=== PATIENT | male | born 1960 | race Caucasian/White ===

== ENCOUNTER 2019-06-10 10:54 | Observation (INO) ==
--- NOTE | 2019-05-28 14:16 | PAT Medication Instructions ---
Medication Instructions Date of Service May 28, 2019 Home Medications Medications atorvastatin 20 mg PO HS ibuprofen-diphenhydramine HCl [Ibuprofen PM] 1 cap PO HS verapamil 360 mg PO HS ASK your surgeon for instructions ibuprofen-diphenhydramine HCl [Ibuprofen PM] 1 cap PO HS Take evening before surgery atorvastatin 20 mg PO HS verapamil 360 mg PO HS Other Notes If you have any questions please call us at [phone] or [phone] or [phone] or [phone]
--- NOTE | 2019-05-29 10:36 | Anesthesiology Consultation ---
Date of Service May 29, 2019 Assessment & Plan (1) Encounter for pre-operative examination: Chart Review Chart Review: Acceptable Risk for Surgery and Patient seen in Pre Admission Testing Teaching & Discussion Instructed NPO after midnight before surgery, except medications with 15 cc of water. Medication instructions provided according to the PAT guidelines. History Surgery Operation Date: 06/10/19 13:15 Proposed Procedures p Left Total Knee Arthroplasty - Roman Yu MD Height/Weight Height: 5 ft 8 in Weight: 93.2 kg Allergies Allergy/AdvReac Type Severity Reaction Status Date / Time acetaminophen [From Percocet] AdvReac Unknown "GO INTO A Verified 05/21/19 10:18 DIFFERENT WORLD" oxycodone [From Percocet] AdvReac Unknown "GO INTO A Verified 05/21/19 10:18 DIFFERENT WORLD" Medications Home Medications Medication Instructions Recorded Confirmed Last Taken atorvastatin 20 mg PO HS 05/21/19 05/29/19 Unknown ibuprofen-diphenhydramine HCl 1 cap PO HS 05/21/19 05/29/19 Unknown [Ibuprofen PM] verapamil 360 mg PO HS 05/21/19 05/29/19 Unknown Past Medical History Medical History Hip bursitis, left History of basal cell carcinoma REMOVED Hyperlipidemia CONTROLLED WITH MED Hypertension CONTROLLED WITH MED Left knee DJD Osteoarthritis Sciatica Exercise / Class Metabolic Activity 1 > 8 Run/Swim/Ski/Tennis (Very active, ran marathons prior to worsening knee pain) Past Family History Family History Mother Family history of diabetes mellitus Past Surgical History Surgical History History of colonoscopy History of left knee surgery History of right knee surgery Past Anesthesia History No Hx of Anesthesia Complications and No Family Hx of Anesthesia Complications History of PONV No Hx of PONV and No Hx of Motion Sickness Social History Smoking Status: Never smoker Do You Dip or Chew Tobacco: No Hx Alcohol Use: Yes Alcohol type: beer Alcohol Intake Frequency Comment: AT MOST ONCE A MONTH Hx Substance Use: No substance use type: does not use Review of Systems Pt denies any recent chest pain, shortness of breath, palpitations, cough, fever or URI. Physical Exam Vital Signs BP: 141/81 P: 62bpm SPO2: 96% RA T: 97.6 F R: 12 ENMT Mouth: + dental restorations (few crowns and caps); no chipped teeth and no loose teeth Thyromental Distance: > or= 3.5 Finger Breadths (4) Mallampati Class: I Neck normal visual inspection and + facial hair (goatee, very short); neck extension not limited Respiratory normal respiratory effort Auscultation: lungs clear to auscultation bilaterally Cardiovascular Rate/Rhythm: regular rhythm and + bradycardic Heart Sounds: no murmur Vessels: no carotid bruit Extremities: no edema Testing Laboratory Results 05/29/19 10:17 05/29/19 10:17 PT 10.6 Seconds (9.0-12.0) 05/29/19 10:17 INR 1.0 (0.9-1.1) 05/29/19 10:17 APTT 26.5 Seconds (21.0-31.0) 05/29/19 10:17 Blood Type O Positive 05/29/19 10:17 Antibody Screen NEGATIVE 05/29/19 10:17 Electrocardiogram Date: 05/29/19 Findings: + SB @ (58) Chest X-Ray Date: 05/29/19 Findings: + NAD
[2019-05-29 11:11] LABS: Basophils # (auto) 0.02 K/uL (0-0.2); Basophils % (auto) 0.3 %; Eosinophils # (auto) 0.08 K/uL (0-0.5); Eosinophils % (auto) 1.2 %; Hematocrit (blood only) 44.1 % (42-52); Hemoglobin 14.8 g/dL (14.0-18.0); Immature Granulocytes # (auto) 0.01 K/uL (0.00-0.02); Immature Granulocytes % (auto) 0.2 %; Lymphocytes # (auto) 1.88 K/uL (1.2-3.4); Lymphocytes % (auto) 28.4 %; Mean Corpuscular Hemoglobin 30.5 pg (25-34); Mean Corpuscular Hgb Conc 33.6 g/dL (32-36); Mean Corpuscular Volume 90.7 fL (80-100); Mean Platelet Volume 9.8 fL (7.4-10.4); Monocytes # (auto) 0.63 K/uL (0.11-0.59); Monocytes % (auto) 9.5 %; Neutrophils % (auto) 60.4 %; Platelet Count 294 K/uL (130-400); RDW Coefficient of Variation 13.4 % (11.5-14.5); RDW Standard Deviation 44.3 fL (36.4-46.3); Red Blood Count 4.86 M/uL (4.7-6.1); White Blood Count 6.62 K/uL (4.8-10.8)
--- NOTE | 2019-05-29 11:11 | XRay Report ---
XR chest Pre-admission PA/Lat CLINICAL HISTORY: PAT preoperative evaluation COMPARISON STUDY: No previous studies for comparison. FINDINGS: The bones soft tissues and hemidiaphragms are normal. The cardiomediastinal silhouette is n ormal. The lungs are clear. The pulmonary vasculature is normal. IMPRESSION: Negative chest. ACT 112: Negative or not required by law. The above report was generated using voice recognition software. It may contain grammatical, syntax or spelling errors. Electronically signed by: Michael Heart M.D. 05/29/2019 11:09 AM
[2019-05-29 11:22] LABS: Partial Thromboplastin Time 26.5 Seconds (21.0-31.0); Prothrombin Time 10.6 Seconds (9.0-12.0)
[2019-05-29 11:42] LABS: BUN Creatinine Ratio 32.9 (10-20); Calcium 9.5 mg/dl (8.5-10.1); Creatinine Clr Calc Pharmacy 80.6 ml/min; Est GFR (Non-African American) 74.2; Potassium 4.7 mmol/L (3.5-5.1)
--- NOTE | 2019-05-30 06:19 | Electrocardiogram Report ---
Test Reason : Blood Pressure : / mmHG Vent. Rate : 058 BPM Atrial Rate : 058 BPM P-R Int : 152 ms QRS Dur : 104 ms QT Int : 408 ms P-R-T Axes : 072 084 052 degrees QTc Int : 400 ms Sinus bradycardia Otherwise normal ECG No previous ECGs available Confirmed by Neno Naik ([id number]) on 05/30/2019 6:19:20 AM Referred By: Roman Yu Confirmed By:Neno Naik
[~2019-06-10 10:54] MED LIST: ACETAMINOPHEN 500 MG TAB PO SCH; BUPIVACAINE 0.5 % 5 MG/1 ML PF 10ML VIAL ONE; BUPIVACAINE LIPOSOME/PF 266 MG, BUPIVACAINE/EPINEPHRINE 50 ML, SODIUM CHLORIDE 0.9% 30 ... INFIL SCH; BUPIVACAINE/EPINEPHRINE 0.25% 1:200,000 30 ML VIAL ONE; CEFAZOLIN 2000MG 2,000 MG/15 ML SYR IV SCH; DEXAMETHASONE SOD INJ 4 MG/ML VIAL ONE; FAMOTIDINE 20 MG TAB PO SCH; GABAPENTIN 600 MG DOSE PO SCH; LR 500ML BOLUS, THEN 15ML/HR IV SCH; LR 60ML/HR IV SCH; METOCLOPRAMIDE HCL 10 MG TABLET PO SCH; SCOPOLAMINE 1.5 MG TDSY TD SCH; TRANEXAMIC ACID / 0.7% NACL 1,000 MG/100 ML BAG IV SCH
[2019-06-10] MEDS ORDERED: fentaNYL citrate 100 MCG/2 ML VIAL ONE (11:41)
[2019-06-10] MEDS ORDERED: MIDAZOLAM HCL 1 MG/ML 2ML VIAL ONE ×2 (11:41→14:24)
[2019-06-10] MEDS ORDERED: LIDOCAINE HCL 2% 2 ML VIAL/AMP(20MG/ML) INFIL ONE (11:41)
[2019-06-10] MEDS ORDERED: ONDANSETRON INJ 2 MG/ML 2 ML VIAL ONE (11:41)
[2019-06-10] MEDS ORDERED: PROPOFOL IV EMULSION 10 MG/ML 20 ML VIAL IV ONE (11:41)
--- NOTE | 2019-06-10 12:07 | History & Physical Bridge Note ---
Date of Service June 10, 2019 History & Physical Bridge Note I have examined the patient, reviewed the History & Physical and in the interval since the performance of the History & Physical I have noted the following changes of clinical significance: no changes noted
[2019-06-10] MEDS ORDERED: BUPIVACAINE/EPINEPHRINE 0.25% 1:200,000 30 ML VIAL ONE (12:09)
[2019-06-10] MEDS ORDERED: SODIUM CHLORIDE 0.9% PF 50 ML VIAL ONE (12:10)
[2019-06-10] MEDS ORDERED: BACITRACIN INJ 50,000 UNIT VIAL ONE (12:10)
[2019-06-10] MEDS ORDERED: BUPIVACAINE LIPOSOME 1.3% 266 MG/20 ML VIAL ONE (12:10)
[2019-06-10] MEDS ORDERED: ATROPINE SULFATE 0.1 MG/ML 10ML SYR IV PRN (12:12)
[2019-06-10] MEDS ORDERED: fentaNYL citrate 100 MCG/2 ML VIAL IV PRN (12:12)
[2019-06-10] MEDS ORDERED: ePHEDrine sulfate 50 MG/ML AMP IV PRN (12:12)
[2019-06-10] MEDS ORDERED: ONDANSETRON INJ 2 MG/ML 2 ML VIAL IV PRN ×2 (12:12→15:59)
[2019-06-10] MEDS ORDERED: BUPIVACAINE 0.5 % 5 MG/1 ML PF 10ML VIAL ONE (12:21)
--- NOTE | 2019-06-10 14:47 | Post Operative Brief Note ---
PG Immediate Post Op with CF Date of Surgery June 10, 2019 Pre & Post Diagnosis Operation Date: 06/10/19 13:15 Pre-Op Diagnosis: Left Knee Degenerative Joint Disease Post-Op Diagnosis: Left Knee Degenerative Joint Disease I identified the patient and participated in the time-out.: Yes Procedure Operation Date: 06/10/19 13:15 Actual Procedures p Left Total Knee Replacement(Left) - Roman Yu MD Surgeon Roman Yu MD Perinatology Physician Willy, PAC Estimated Blood Loss 50 Findings Consistent with Post-Op Diagnosis Fluids 1500 cc Specimens Specimen Description: Left Knee Bone and Tissue Anesthesia Type Spinal MAC Complications none Disposition Accompanied Patient To Recovery: No Disposition: Recovery Room
--- NOTE | 2019-06-10 15:06 | Anesthesiology Progress Note ---
Date of Service June 10, 2019 Anesthesia Post Procedure Vital Signs Vital Signs: Temp Pulse Pulse Resp BP Pulse Ox 06/10/19 15:00 57 L 15 137/81 100 06/10/19 14:51 36.1 C L 60 16 113/83 99 06/10/19 11:45 36.9 C 57 L 20 158/98 H 97 Transfer of Care Handoff Completed per policy Notes Mental Status: alert / awake / arousable Patient Amnestic to Procedure: Yes Nausea / Vomiting: adequately controlled Pain: adequately controlled Airway Patency, RR, SpO2: stable & adequate BP & HR: stable & adequate Hydration State: stable & adequate Neuraxial Anesthesia: was administered and sensory block is resolving Anesthetic Complications: no major complications apparent
--- NOTE | 2019-06-10 15:12 | XRay Report ---
LEFT KNEE 2 VIEWS History: Left total knee arthroplasty. Degenerative arthritis. Postop. FINDINGS: The patient is status post a left total knee arthroplasty. The hardware is intact. No fract ure or dislocation. Skin kayla are in place. IMPRESSION: Left total knee arthroplasty. No evidence for hardware complication. ACT 112: Negative or not required by law. Electronically signed by: James Conrad M.D. 06/10/2019 3:10 PM
--- NOTE | 2019-06-10 15:26 | Operative Report ---
Post Operative Report Pre & Post Diagnosis Operation Date: 06/10/19 13:15 Pre-Op Diagnosis: Left Knee Degenerative Joint Disease Post-Op Diagnosis: Left Knee Degenerative Joint Disease I identified the patient and participated in the time-out.: Yes Procedure Operation Date: 06/10/19 13:15 Actual Procedures p Left Total Knee Replacement(Left) - Roman Yu MD Surgeon Roman Yu MD Flight Line Mechanic Willy, PAC Estimated Blood Loss 50 Findings Consistent with Post-Op Diagnosis Operative findings revealed advanced left knee DJD. He had extensive grade 4 [id number] disease of the medial compartment with eburnation of the medial femoral condyle medial tibial plateau. He had some focal grade 4 changes elsewhere. He had a fixed varus deformity to his knee. He had chronic ACL deficiency. Significant osteophytes in the intercondylar notch area. Fluids 1500 cc Specimens Left knee sent for pathology. Drains None. 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 He injured his knee many years ago and has a chronic ACL deficiency. Does have history of knee arthroscopy done in the past. Over the years he developed increased pain discomfort and deformity in his knee. Is also had instability. Is been through extensive conservative treatment which became less successful over time. Is been very limited in his lifestyle due to his pain. He elected proceed with total knee arthroplasty. Description of Procedure Operative implants consisted of: 1. Biomet Vanguard size 70 left posterior by femoral component. 2. Biomet size 75 tibial tray. 3. 12 mm posterior box polyethylene insert. 4. 31 x 8 all poly-patella. Patient is taken to the operating room identified and placed on the operating table supine position protectors were properly padded. IV antibiotics arrived by anesthesia team. A spinal anesthetic and abductor canal block had provided in the holding area. Zhu catheter was placed in sterile fashion. Left thigh turn was then placed in the left lower extremities and prepped draped in usual sterile fashion. Left leg was elevated and exsanguinated with use of an Esmarch and turns placed at 300 mmHg. An anterior approach to the left knee was then performed to longitudinal incisions over the patella. Sharp dissection was carried through subcutaneous tissue down below the extensor mechanism. A medial parapatellar arthrotomy incision was made. Some subperiosteal dissection was carried out jabari garrison. I did a pretty extensive dissection medial and posterior medially due to his varus deformity. The fat pad was resected from each patella tendon. Of note, the patella tendon was completely scarred to the anterior aspect of the tibia and I had to elevate this down to the tibial tubercle. Great care was taken to preserve the patella tendon attachment. The lateral patella femoral ligament was released and the patella was subluxated laterally and the knee was flexed. The osteophytes were taken off the distal femur. The ACL was absent. The PCL was released from the distal femur and the tibia subluxated anteriorly. The external tibial alignment jig was then placed in the interface the tibia and adjusted 16 mm medially. Proximal tibial cut was made essentially flush with the most efficient aspect the posterior medial tibial plateau. Some osteophytes were taken off medial and posterior medially. Tibia sized to a size 75. Attention drawn the femur. The distal femur was entered the sharp drill bit intramedullary canal was suction. A left 6 degree valgus cutting guide was placed. This femoral cutting block was pinned in place. Distal femoral cut was made to take an additional 3 mm of bone off distal femur. The femur was then sized to a size 70. We did downsize this slightly. The AP cutting block was pinned parallel to the epicondylar axis which was 6 degrees of external rotation. The anterior cut, anterior chamfer, posterior cut, posterior chamfer cuts were made. Box cutting guide was placed in just slight lateral box cut was made. The knee was flexed with the remnants of the medial lateral menisci were excised. The osteophytes were taken off the posterior aspect of the femur. A trial femoral component was placed. The tibial tray was pinned in maximum external rotation and the drill and stem punch wheeze greatly affecting proximal tibia for the tibial tray. The knee was then trialed the 12 mm insert fit most appropriately. Attention drawn to the patella. The patella was cleaned of all soft tissues. Patella thickness measured 25 mm in thickness was cut down to 15. Was sized to a size 31 patella. Locals were drilled for 31 patella. Lateral osteophyte is moved. Patella button was placed. Knee was taken through range of motion patella tracked nicely with no thumbs test. Attention turned to placing the permanent components. All trial components were removed. Bone plug was placed in the disc femur limit blood loss put a double batch [place] G cement was mixed. Biomet Vanguard size 70 left posterior box femoral component, size 75 tibial tray, 12 mm posterior box polyethylene insert, and a 31 x 8 all poly-patella were then cemented into place. All extraneous cement was removed. The knee was brought out to full extension total cement hardened. Final cement check was then performed. The pericapsular tissues were injected with total 100 cc of combination of 20 cc of Exparel, 30 cc normal saline, 50 cc of quarter percent Marcaine with epinephrine. Patient did receive 1 g of tranexamic acid. The tourniquet was then let down for final tourniquet time of 71 minutes. Hemostasis assured use electrocautery. The wounds once again irrigated. The extensor mechanism then closed with combination 1 PDS suture #1 Vicryl suture in [id number] fashion for extensor mechanism checked found to be intact the subcutaneous tissue then closed with 2 Dexon suture in a buried interrupted fashion skin was closed skin kayla. Leg was then cleaned dried a sterile dressing composed of Xeroform, 4 x 4's, sterile cast padding, Javed bandage were applied. Patient then transferred to the recovery room in stable condition. The patient tolerated the procedure well no complications. I attest to the content of the Intraoperative Record and any orders documented therein. Any exceptions are noted below.
[2019-06-10] MEDS ORDERED: ALUMINUM/MAGNESIUM SUSP 30 ML UDC PO PRN (15:59)
[2019-06-10] MEDS ORDERED: TAMSULOSIN HCL 0.4 MG CAP PO PRN (15:59)
[2019-06-10] MEDS ORDERED: bisacodyL 10 MG SUPP PR PRN (15:59)
[2019-06-10] MEDS ORDERED: NALOXONE HCL 0.4 MG/1 ML VIAL/CARP IV PRN (15:59)
[2019-06-10] MEDS ORDERED: HYDROmorphone INJ 0.5 MG/0.5 ML SYR IV PRN (15:59)
[2019-06-10] MEDS ORDERED: MAGNESIUM HYDROXIDE SUSP 30 ML UDC PO PRN (15:59)
[2019-06-10] MEDS ORDERED: METOCLOPRAMIDE HCL INJ 5 MG/ML 2 ML VIAL IV PRN (15:59)
[2019-06-10] MEDS: CHECK SCOPOLAMINE PATCH PLACEMENT SCH ×2 (18:13→23:14)
[2019-06-10] MEDS: KETOROLAC 30 MG/ML VIAL IV SCH ×2 (18:13→23:12)
[2019-06-10] MEDS: SODIUM CHLORIDE 0.9% 1000ML 1,000 ML IV SCH (18:15)
[2019-06-10] MEDS: ASCORBIC ACID 500 MG TAB PO SCH (18:39)
[2019-06-10] MEDS: FERROUS GLUCONATE 324 MG TAB PO SCH (18:39)
[2019-06-10] MEDS: HYDROmorphone HCL 2 MG TAB PO PRN (19:39)
[2019-06-10] MEDS ORDERED: TRANEXAMIC ACID / 0.7% NACL 1,000 MG/100 ML BAG IV SCH (20:49)
[2019-06-10] MEDS: CEFAZOLIN 2000MG 2,000 MG/15 ML SYR IV SCH (20:57)
[2019-06-10] MEDS: SENNA 8.6 MG TAB PO SCH (20:58)
[2019-06-10] MEDS: VERAPAMIL HCL 180 MG TABCR PO SCH (20:58)
[2019-06-10] MEDS: ASPIRIN 81 MG ECTAB PO SCH (20:58)
[2019-06-10] MEDS: DOCUSATE SODIUM 100 MG CAP PO SCH (20:58)
[2019-06-10] MEDS: ATORVASTATIN 20 MG TAB PO SCH (20:58)
[2019-06-10] MEDS: TAPENTADOL HCL ER 50 MG TABCR PO SCH (21:03)
[2019-06-10] MEDS: ACETAMINOPHEN 500 MG TAB PO SCH (22:11)
[2019-06-11] MEDS: HYDROmorphone HCL 2 MG TAB PO PRN ×6 (01:19→21:44)
[2019-06-11] MEDS: SODIUM CHLORIDE 0.9% 1000ML 1,000 ML IV SCH (02:08)
[2019-06-11] MEDS: CEFAZOLIN 2000MG 2,000 MG/15 ML SYR IV SCH (05:13)
[2019-06-11] MEDS: ACETAMINOPHEN 500 MG TAB PO SCH ×3 (06:09→20:39)
[2019-06-11] MEDS: KETOROLAC 30 MG/ML VIAL IV SCH ×2 (06:09→12:08)
[2019-06-11 06:55] LABS: Hematocrit (blood only) 36.6 % (42-52); Hemoglobin 12.4 g/dL (14.0-18.0); Mean Corpuscular Hemoglobin 30.5 pg (25-34); Mean Corpuscular Hgb Conc 33.9 g/dL (32-36); Mean Corpuscular Volume 90.1 fL (80-100); Mean Platelet Volume 9.1 fL (7.4-10.4); Platelet Count 233 K/uL (130-400); RDW Coefficient of Variation 13.6 % (11.5-14.5); RDW Standard Deviation 44.8 fL (36.4-46.3); Red Blood Count 4.06 M/uL (4.7-6.1); White Blood Count 8.88 K/uL (4.8-10.8)
[2019-06-11 07:22] LABS: BUN Creatinine Ratio 19.5 (10-20); Creatinine Clr Calc Pharmacy 86.8 ml/min; Est GFR (African American) 94.4; Est GFR (Non-African American) 81.4
--- NOTE | 2019-06-11 07:58 | Progress Note ---
DATE: 06/11/2019 SUBJECTIVE: A 58-year-old gentleman postop day 1 from a left knee replacement. He is doing pretty well. Had a bit more pain last night, but doing better this morning. He is doing okay with pain pills. No chest pain or shortness of breath. Not feeling dizzy or lightheaded. OBJECTIVE: VITAL SIGNS: Temperature 36.8. Vital signs stable. GENERAL: Shows a pleasant, middle-aged male. He is sitting up in bed and looks pretty comfortable. LUNGS: Clear to auscultation. HEART: Has a regular rate and rhythm. ABDOMEN: Soft, nontender, nondistended. EXTREMITIES: Grossly neurovascularly intact except as follows. Examination of the left lower extremity reveals the leg to be well aligned. Dressing is clean, dry, and intact. He can dorsiflex and plantarflex his foot appropriately. He can do a straight leg raise with some effort. He is neurologically intact. LABORATORY DATA: Hemoglobin 12.4. Hematocrit 36.6. Electrolytes are stable. ASSESSMENT: A 58-year-old gentleman postop day 1 from a left knee replacement, doing reasonably well. He has been doing okay with the pain pills. No chest pain or cardiac issues. His hemoglobin is acceptable. PLAN: 1. DVT prophylaxis including thigh-high TEDs, SCDs, and aspirin twice a day. 2. PT/OT. Weight bear as tolerated. Left total knee protocol. 3. Pain control, doing well with current pain regimen. He has had issues with pain meds in the past. We will see how he does on this Dilaudid. 4. Disposition: He is planning to be discharged home with some home health once medically stable. We will see how he does with therapy and pain control today.
--- NOTE | 2019-06-11 08:31 | Anesthesiology Progress Note ---
Date of Service June 11, 2019 Anesthesia Post Procedure Vital Signs Vital Signs: Temp Pulse Pulse Resp BP Pulse Ox 06/11/19 07:26 36.8 C 56 L 16 130/82 95 06/11/19 03:16 36.9 C 60 16 106/66 95 06/10/19 23:00 36.7 C 60 18 128/80 95 06/10/19 20:54 59 L 124/73 06/10/19 18:45 36.3 C L 54 L 16 137/81 95 06/10/19 17:45 36.5 C 54 L 16 122/73 97 06/10/19 16:49 36.4 C L 60 16 120/76 97 06/10/19 16:15 36.4 C L 57 L 16 118/78 97 06/10/19 15:45 36.4 C L 58 L 16 136/76 95 06/10/19 15:35 55 L 14 114/77 95 06/10/19 15:20 36.5 C 57 L 15 129/78 94 06/10/19 15:10 59 L 16 134/74 95 06/10/19 15:00 57 L 15 137/81 100 06/10/19 14:51 36.1 C L 60 16 113/83 99 06/10/19 11:45 36.9 C 57 L 20 158/98 H 97 Pain Intensity Left Knee: Pain Intensity: 4 Notes Mental Status: alert / awake / arousable and participated in evaluation Patient Amnestic to Procedure: Yes Nausea / Vomiting: adequately controlled Pain: adequately controlled Airway Patency, RR, SpO2: stable & adequate BP & HR: stable & adequate Hydration State: stable & adequate Neuraxial Anesthesia: was administered and sensory block resolved Anesthetic Complications: no major complications apparent and Pt Satisfied with anesthetic care
[2019-06-11] MEDS: FERROUS GLUCONATE 324 MG TAB PO SCH ×2 (09:22→17:04)
[2019-06-11] MEDS: ASCORBIC ACID 500 MG TAB PO SCH ×2 (09:22→17:04)
[2019-06-11] MEDS: MULTIVITAMIN TAB PO SCH (09:22)
[2019-06-11] MEDS: TAPENTADOL HCL ER 50 MG TABCR PO SCH ×2 (09:22→20:39)
[2019-06-11] MEDS: DOCUSATE SODIUM 100 MG CAP PO SCH ×2 (09:22→20:40)
[2019-06-11] MEDS: ASPIRIN 81 MG ECTAB PO SCH ×2 (09:35→20:41)
[2019-06-11] MEDS: ATORVASTATIN 20 MG TAB PO SCH (20:40)
[2019-06-11] MEDS: SENNA 8.6 MG TAB PO SCH (20:40)
[2019-06-11] MEDS: VERAPAMIL HCL 180 MG TABCR PO SCH (20:44)
[2019-06-12] MEDS: HYDROmorphone HCL 2 MG TAB PO PRN ×2 (01:30→06:01)
[2019-06-12] MEDS: ACETAMINOPHEN 500 MG TAB PO SCH (05:54)
[2019-06-12] MEDS: DOCUSATE SODIUM 100 MG CAP PO SCH (08:21)
[2019-06-12] MEDS: FERROUS GLUCONATE 324 MG TAB PO SCH (08:21)
[2019-06-12] MEDS: MULTIVITAMIN TAB PO SCH (08:21)
[2019-06-12] MEDS: ASCORBIC ACID 500 MG TAB PO SCH (08:21)
[2019-06-12] MEDS: ASPIRIN 81 MG ECTAB PO SCH (08:21)
[2019-06-12] MEDS: TAPENTADOL HCL ER 50 MG TABCR PO SCH (08:21)
[2019-06-12] MEDS ORDERED: HYDROmorphone HCL 2 MG TAB PO PRN (09:23)
--- NOTE | 2019-06-15 16:40 | Discharge Summary ---
ADMITTING PHYSICIAN AND SURGEON: Dr. Roman Yu. ADMITTING DIAGNOSIS: Left knee degenerative joint disease. SURGERY PERFORMED: Left total knee arthroplasty. SECONDARY DIAGNOSES: Elevated cholesterol, hypertension, low back pain, sciatica. CONSULTS: None obtained. HISTORY AND PHYSICAL EXAMINATION: Well documented in the patient's chart. HOSPITAL COURSE: The patient was admitted on 06/10/2019 underwent total knee arthroplasty, tolerated the procedure well. There were no complications. He was transferred to the PACU postoperatively and later to the orthopedic floor for further care. He was given Ancef for antibiotic prophylaxis, PRITESH stockings, SCDs and aspirin for DVT prophylaxis. Hemoglobin, hematocrit and vital signs were monitored during his hospital stay and remained stable, did not require any blood transfusions. There were no complications. On postoperative day 1, he was tolerating a regular diet, pain was controlled with oral pain medicine. He was participating in physical therapy. Postop day 1, he was discharged home, set up with home health services, given printed discharge instructions as well as new prescriptions for extra strength Tylenol, aspirin, hydromorphone, and ibuprofen. Continue his home medicines. Continue physical therapy, weightbearing as tolerated, PRITESH stockings. Follow up approximately 2 weeks postop or sooner if there are any problems or concerns.
== END 2019-06-12 12:10 | disposition home health service (06) ==
LOC: ASU 10:54 → INTOOBSV 14:50 → 3N 14:50